=== PATIENT | male | born 1945 | race Caucasian/White ===

== ENCOUNTER 2017-01-24 06:25 | Observation (INO) | payer MEDICARE, OTHER ==
[2017-01-24 06:47] LABS: BASO % 0.3 % (0-6); EOS % 1.7 % (0-6); GRAN % 59.6 % (47-80); HEMOGLOBIN 15.1 gm/dl (14.0-18.0); LYMPH % 27.8 % (16-45); MEAN CELL VOLUME 96.7 fl (81-97); MEAN CORPUSCULAR HEMOGLOBIN 33.2 pg (27-33); MEAN CORPUSCULAR HGB CONC 34.3 g/dl (32-36); MEAN PLATELET VOLUME 10.3 fl (7.4-10.4); MONO % 10.6 % (0-9); PLATELET COUNT 182 K/uL (130-400); RED BLOOD COUNT 4.55 M/uL (4.40-5.70); RED CELL DISTRIBUTION WIDTH 13.6 % (11.5-14.5); WHITE BLOOD COUNT W/O DIFF 6.6 K/uL (4.2-12.2)
[2017-01-24 06:59] LABS: ALB/GLOB RATIO 1.8 (1.1-1.8); ALBUMIN 4.5 gm/dL (3.5-5.0); ALKALINE PHOSPHATASE 91 U/L (38-126); ALT/SGPT 44 U/L (21-72); ANION GAP 10.4 (7-16); AST/SGOT 37 U/L (17-59); BILIRUBIN,TOTAL 0.85 mg/dL (0.2-1.3); BLOOD UREA NITROGEN 21 mg/dL (9-20); CARBON DIOXIDE 28.6 mmol/L (22-30); CREATINE PHOSPHOKINASE 66 U/L (55-170); CREATININE 1.3 mg/dL (0.66-1.25); EST GLOMERULAR FILTRATION RATE 58 ml/min; GLUCOSE,RANDOM 96 mg/dL (70-110)
--- NOTE | 2017-01-24 06:59 | Emergency Department Record ---
History of Present Illness - General Chief Complaint: Shortness of breath Stated Complaint: TINGLES ALL OVER Time Seen by Provider: 01/24/17 06:57 Source: Patient, Family Mode of Arrival: Ambulatory Limitations: No limitations - History of Present Illness Initial Comments: 71 yo male presents with shortness of breath. He woke up around 2am with an uneasy feeling of shaking, tingling, and shortness of breath. He states the shortness of breath lasted most of the night. He tried different things to try to get relief but the symptoms persisted. He states he had a "very uneasy feeling" like something bad was occurring. He denies chest pain or pain with inspiration. He has had a mild cough. No fever. He states the feeling makes him have a tingling sensation all over his body. No nausea, vomiting or diarrhea. No history of CAD or DVT/PE. PCP John Rice MD Complaint: Shortness of breath Onset/Timin -: Hour(s) Severity: Mild Quality: Other Consistency: Constant Improves With: Nothing Worsens With: Nothing Associated Symptoms: Cough, Other Treatments Prior to Arrival: None - Related Data Home Medications Medication Instructions Recorded Confirmed Last Taken Calcium Carbonate/Vitamin D3 1 each PO BID 10/30/14 01/24/17 1 Day Ago [Calcium 500-Vit D3 400 Tablet] ~01/02/16 Clobetasol Propionate/Emoll 30 gm TP BID 10/30/14 01/24/17 1 Day Ago [Clobetasol Emollient 0.05% Crm] ~01/02/16 Cyclobenzaprine HCl [Flexeril] 10 mg PO BID 10/30/14 01/24/17 1 Day Ago ~01/02/16 Gabapentin 600 mg PO TID 10/30/14 01/24/17 1 Day Ago ~01/02/16 Losartan/Hydrochlorothiazide 1 each PO DAILY 10/30/14 01/24/17 1 Day Ago [Hyzaar 100-25 Tablet] ~01/02/16 Multivitamin [Multi-Vitamin Daily] 1 each PO DAILY 10/30/14 01/24/17 1 Day Ago ~01/02/16 Omeprazole 20 mg PO DAILY 10/30/14 01/24/17 1 Day Ago ~01/02/16 Potassium Chloride [Klor-Con] 10 meq PO DAILY 10/30/14 01/24/17 1 Day Ago ~01/02/16 Simvastatin [Zocor] 10 mg PO QHS 10/30/14 01/24/17 1 Day Ago ~01/02/16 Verapamil HCl [Calan Sr] 240 mg PO BID 10/30/14 01/24/17 1 Day Ago ~01/02/16 Naproxen Sodium [Aleve] 440 mg PO DAILY 01/24/17 01/24/17 Unknown Allergies Allergy/AdvReac Type Severity Reaction Status Date / Time levofloxacin [From LEVAQUIN] Allergy Unknown HIVES Verified 01/03/16 07:52 Sulfa (Sulfonamide Allergy Unknown HIVES Verified 01/03/16 07:52 Antibiotics) [SULFA (SULFONAMIDE ANTIBIOTICS)] hydrocodone bitartrate Allergy ITCHING Verified 01/03/16 07:52 [From [place]] Travel Screening - Travel/Exposure Within Last 30 Days Have you traveled within the last 30 days?: No - Travel/Exposure Within Last Year Have you traveled outside the [place] in the last year?: No - Additonal Travel Details Have you been exposed to anyone with a communicable illness?: No - Travel Symptoms Symptom Screening: None Review of Systems Constitutional: Denies: Chills, Fever, Malaise, Weakness Eyes: Denies: Eye discharge, Eye pain, Photophobia, Vision change ENT: Denies: Congestion, Throat pain Respiratory: Reports: Cough, Dyspnea. Denies: Hemoptysis, Stridor, Wheezes Cardiovascular: Reports: Dyspnea on exertion. Denies: Chest pain, Edema, Palpitations, Syncope Endocrine: Reports: Fatigue Gastrointestinal: Denies: Abdominal pain, Diarrhea, Nausea, Vomiting Genitourinary: Denies: Dysuria, Frequency, Hematuria Musculoskeletal: Denies: Arthralgia, Back pain, Joint swelling, Myalgia, Neck pain Skin: Denies: Bruising, Change in color, Rash Neurological: Reports: Tingling, Tremors. Denies: Headache, Numbness, Vertigo, Weakness Psychiatric: Denies: Anxiety Hematological/Lymphatic: Denies: Blood Clots, Easy bleeding, Easy bruising, Swollen glands Past Medical History - SOCIAL HISTORY Smoking Status: Former smoker Alcohol Use: Occassional Drug Use: None - RESPIRATORY Hx Respiratory Disorders: No Hx Bronchitis: Yes - CARDIOVASCULAR Hx Cardio Disorders: Yes Hx Hypertension: Yes - NEURO Hx Neuro Disorders: No - GI Hx GI Disorders: Yes Hx Abdominal Pain: Yes Hx Diverticulitis: Yes Hx Obstructive Bowel: Yes Comment:: Bowel resection - Hx Genitourinary Disorders: Yes Hx Prostate Problems: Yes (removed 2001) - ENDOCRINE Hx Endocrine Disorders: No Hx Diabetes: No Hx Thyroid Disease: No - MUSCULOSKELETAL Hx Musculoskeletal Disorders: Yes Hx Arthritis: Yes (bilateral hands) - PSYCH Hx Psych Problems: No - HEMATOLOGY/ONCOLOGY Hx Hematology/Oncology Disorders: Yes Hx Cancer: Yes (prostate 2001) Hx Chemotherapy: No Hx Radiation Therapy: No Comment:: prone to celluliits in the legs Family Medical History Any Significant Family History?: Yes Hx Cancer: Brother/Sister Hx HTN: Mother Hx Resp Disorders: Father Physical Exam - General General Appearance: Alert, Oriented x3, Cooperative, No acute distress Limitations: No limitations - Head Head exam: Normal inspection - Eye Eye exam: Normal appearance, PERRL. negative: Conjunctival injection, Periorbital swelling - ENT ENT exam: Normal exam, Mucous membranes moist Ear exam: Normal external inspection Nasal Exam: Normal inspection Mouth exam: Normal external inspection Teeth exam: Normal inspection - Neck Neck exam: Normal inspection, Full ROM. negative: Tenderness - Respiratory Respiratory exam: Normal lung sounds bilaterally. negative: Accessory muscle use, Respiratory distress, Rhonchi, Stridor, Wheezes - Cardiovascular Cardiovascular Exam: Regular rate, Normal rhythm, Normal heart sounds - GI/Abdominal GI/Abdominal exam: Soft. negative: Distended, Tenderness - Rectal Rectal exam: Deferred - exam: Deferred - Extremities Extremities exam: Normal inspection, Full ROM, Normal capillary refill. negative: Tenderness - Back Back exam: Reports: Normal inspection, Full ROM. Denies: CVA tenderness (R), CVA tenderness (L), Muscle spasm, Rash noted, Tenderness - Neurological Neurological exam: Alert, Normal gait, Oriented X3 - Psychiatric Psychiatric exam: Normal affect, Normal mood. negative: Agitated, Anxious - Skin Skin exam: Dry, Intact, Normal color, Warm Course Vital Signs 01/24/17 06:27 Temperature 98.1 F Pulse Rate 93 H Respiratory 20 Rate Blood Pressure 170/91 Pulse Ox 98 - Reevaluation(s) Reevaluation #1: EKG NSR rate 92, intervals normal, axis normal, ST NS inferior lateral changes. Non specific changes 01/24/17 07:00 01/24/17 08:10 Reevaluation #2: The labs were reviewed. The Troponin is negative at 0.012 BNP is 205 CR is 1.3 with GFR of 58. CXR prelim reviewed by me. No acute infiltrate or acute process. 01/24/17 07:32 Reevaluation #3: Mike Johnson V of the [facility] admission service The patient will be placed in OBV for his new dyspnea and non specific EKG changes There will be a cardiology consult and ECHO order with serial enzymes. 01/24/17 09:31 Reevaluation #4: CT negative for PE 01/24/17 09:33 Medical Decision Making - Lab Data Result diagrams: 01/24/17 06:42 01/24/17 06:42 Lab Results 01/24/17 Range/Units 06:42 WBC 6.6 (4.2-12.2) K/uL RBC 4.55 (4.40-5.70) M/uL Hgb 15.1 (14.0-18.0) gm/dl Hct 44.0 (42.0-52.0) % MCV 96.7 (81-97) fl MCH 33.2 H (27-33) pg MCHC 34.3 (32-36) g/dl RDW 13.6 (11.5-14.5) % Plt Count 182 (130-400) K/uL MPV 10.3 (7.4-10.4) fl Gran % 59.6 (47-80) % Lymphocytes % 27.8 (16-45) % Monocytes % 10.6 H (0-9) % Eosinophils % 1.7 (0-6) % Basophils % 0.3 (0-6) % Disposition Disposition: Admit Clinical Impression: Dyspnea Qualifiers: Dyspnea type: unspecified Qualified Code(s): R06.00 - Dyspnea, unspecified Disposition: Still a Patient at [facility] Decision to Admit: Admit from ER Decision to Admit Date: 01/24/17 Decision to Admit Time: : Condition: (2) Stable Forms: Patient Portal Access Time of Disposition:
[2017-01-24 07:11] LABS: CKMB 2.2 ug/L (0-6); TROPONIN I < 0.012 ng/mL (0.00-0.034)
[2017-01-24] MEDS ORDERED: ACETAMINOPHEN 500 MG TABLET PO PRN (09:33)
[2017-01-24] MEDS ORDERED: CYCLOBENZAPRINE 10MG TABLET PO SCH (10:00)
[2017-01-24] MEDS ORDERED: CLOBETASOL PROPIONATE TP SCH (10:00)
[2017-01-24] MEDS ORDERED: EMOLL TP SCH (10:00)
[2017-01-24] MEDS ORDERED: PANTOPRAZOLE SODIUM 40 MG TABLET PO PRN (10:42)
[2017-01-24] MEDS: VERAPAMIL HCL 240 MG TAB ER PO SCH ×2 (10:51→21:22)
[2017-01-24] MEDS: ENOXAPARIN 40 MG/0.4 ML SYR SQ SCH (10:51)
[2017-01-24] MEDS: GABAPENTIN 300 MG CAPSULE PO SCH ×3 (10:51→21:21)
[2017-01-24] MEDS: POTASSIUM CHLORIDE 10 MEQ TAB PO SCH (10:51)
[2017-01-24] MEDS: LOSARTAN POTASSIUM 100 MG TABLET PO SCH (11:46)
[2017-01-24] MEDS: HYDROCHLOROTHIAZIDE 25 MG TABLET PO SCH (11:46)
--- NOTE | 2017-01-24 15:40 | History & Physical ---
History of Present Illness - Date of Service Date of Service for History & Physical: 01/24/17 - History of Present Illness Admitting Diagnosis: New Onset Dyspnea, History of Present Illness: 71 y/o male with sudden onset shortness of breath at 2am this morning accompanied by an uneasy feeling of shaking, and tingling admitted for acute onset dyspnea and new ST non-specific inferior lateral changes on EKG. Past medical history includes bronchitis, HTN, diverticulitis, bowel obstruction, prostate cancer, cellulitis Past Surgical History back surgery x 3 prostate surgery r/t ca 2002 bowel resection (1/4 removed) r/t diverticulitis right shoulder rotator cuff repair Hernia repair hernia repair Prior to arrival woke at 2am with sudden onset shortness of breath and a feeling of impending doom. Denied chest pain, fever, nausea, vomiting, diarrhea. No previous hx CAD, DVT/PE. Reports he felt tingly around his mouth and felt like his whole body was "humming". Is a previous smoker, quit 50 years ago. 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 Otherwise has not been exposed to any other airborne chemicals. Does report history of scar tissue in his left lung from a history of pneumonia. Does know he has COPD findings as per his CXR in ED. Denies cough , REBECCA, mucus production, wheezing. Denies anxiety or panic disorder. Does report has similar symptoms about 10 years ago after doing a nora job in the hot weather, was found to be dehydrated with electrolyte imbalance. While in the ED, labs grossly negative for acute infectious process, first set of cardiac enzymes normal, slight elevation BUN/Cr. EKG NSR with non-specific ST segment changes as compared to previous. D-Dimer 0.53. CTA chest negative for PE, + mediastinal lymphadenopathy, questionable pulmonary fibrosis. CXR shows negative for acute process, + COPD changes. Last stress test 3 years ago and was reported as normal per patient Laboratory Results WBC 6.6 K/uL (4.2-12.2) 01/24/17 06:42 RBC 4.55 M/uL (4.40-5.70) 01/24/17 06:42 Hgb 15.1 gm/dl (14.0-18.0) 01/24/17 06:42 Hct 44.0 % (42.0-52.0) 01/24/17 06:42 MCV 96.7 fl (81-97) 01/24/17 06:42 MCH 33.2 pg (27-33) H 01/24/17 06:42 MCHC 34.3 g/dl (32-36) 01/24/17 06:42 RDW 13.6 % (11.5-14.5) 01/24/17 06:42 Plt Count 182 K/uL (130-400) 01/24/17 06:42 MPV 10.3 fl (7.4-10.4) 01/24/17 06:42 Gran % 59.6 % (47-80) 01/24/17 06:42 Lymphocytes % 27.8 % (16-45) 01/24/17 06:42 Monocytes % 10.6 % (0-9) H 01/24/17 06:42 Eosinophils % 1.7 % (0-6) 01/24/17 06:42 Basophils % 0.3 % (0-6) 01/24/17 06:42 D-Dimer 0.53 mg/L FEU (0-0.59) 01/24/17 06:40 Sodium 142 mmol/L (136-145) 01/24/17 06:42 Potassium 3.8 mmol/L (3.5-5.1) 01/24/17 06:42 Chloride 103 mmol/L (98-107) 01/24/17 06:42 Carbon Dioxide 28.6 mmol/L (22-30) 01/24/17 06:42 Anion Gap 10.4 (7-16) 01/24/17 06:42 BUN 21 mg/dL (9-20) H 01/24/17 06:42 Creatinine 1.3 mg/dL (0.66-1.25) H 01/24/17 06:42 Estimated GFR 58 ml/min 01/24/17 06:42 Random Glucose 96 mg/dL (70-110) 01/24/17 06:42 Calcium 8.6 mg/dL (8.5-10.1) 01/24/17 06:42 Total Bilirubin 0.85 mg/dL (0.2-1.3) 01/24/17 06:42 AST 37 U/L (17-59) 01/24/17 06:42 ALT 44 U/L (21-72) 01/24/17 06:42 Alkaline Phosphatase 91 U/L (38-126) 01/24/17 06:42 Creatine Kinase 66 U/L (55-170) 01/24/17 06:42 CK-MB (CK-2) 2.2 ug/L (0-6) 01/24/17 06:42 Troponin I < 0.012 ng/mL (0.00-0.034) 01/24/17 06:42 NT-Pro-B Natriuret Pep 205.00 pg/mL (<125) H 01/24/17 06:40 Total Protein 7.0 gm/dL (6.3-8.2) 01/24/17 06:42 Albumin 4.5 gm/dL (3.5-5.0) 01/24/17 06:42 Globulin 2.5 gm/dL (1.4-4.8) 01/24/17 06:42 Albumin/Globulin Ratio 1.8 (1.1-1.8) 01/24/17 06:42 Vital Signs - Last 24 Hrs Temp Pulse Pulse Pulse Resp BP BP 01/24/17 12:37 89 16 01/24/17 11:33 99.0 F 86 16 150/78 01/24/17 10:26 20 01/24/17 10:09 98.3 F 88 14 138/84 01/24/17 09:30 98.7 F 93 H 18 152/86 01/24/17 07:37 92 H 18 131/78 01/24/17 06:27 98.1 F 93 H 20 170/91 Pulse Ox 01/24/17 12:37 98 01/24/17 11:33 100 01/24/17 10:26 01/24/17 10:09 100 01/24/17 09:30 96 01/24/17 07:37 98 01/24/17 06:27 98 01/24/17- resting in bed comfortably, reports symptoms improved while he was in the ED. Has had no further shortness of breath or tingling sensation. Denies any further complaints. PCP: Dr John Royal Travel Screening - Travel/Exposure Within Last 30 Days Have you traveled within the last 30 days?: No - Travel/Exposure Within Last Year Have you traveled outside the [place] in the last year?: No - Additonal Travel Details Have you been exposed to anyone with a communicable illness?: No - Travel Symptoms Symptom Screening: None Review of Systems Constitutional: Denies: Chills, Fever, Malaise, Weakness Eyes: Denies: Eye discharge, Eye pain, Photophobia, Vision change ENT: Denies: Congestion, Throat pain Respiratory: Reports: Cough, Dyspnea. Denies: Hemoptysis, Stridor, Wheezes Cardiovascular: Reports: Dyspnea on exertion. Denies: Chest pain, Edema, Palpitations, Syncope Endocrine: Reports: Fatigue Gastrointestinal: Denies: Abdominal pain, Diarrhea, Nausea, Vomiting Genitourinary: Denies: Dysuria, Frequency, Hematuria Musculoskeletal: Denies: Arthralgia, Back pain, Joint swelling, Myalgia, Neck pain Skin: Denies: Bruising, Change in color, Rash Neurological: Reports: Tingling, Tremors. Denies: Headache, Numbness, Vertigo, Weakness Psychiatric: Denies: Anxiety Hematological/Lymphatic: Denies: Blood Clots, Easy bleeding, Easy bruising, Swollen glands Past Medical History - SOCIAL HISTORY Smoking Status: Former smoker Alcohol Use: Occassional Drug Use: None - RESPIRATORY Hx Respiratory Disorders: No Hx Bronchitis: Yes - CARDIOVASCULAR Hx Cardio Disorders: Yes Hx Hypertension: Yes - NEURO Hx Neuro Disorders: No - GI Hx GI Disorders: Yes Hx Abdominal Pain: Yes Hx Diverticulitis: Yes Hx Obstructive Bowel: Yes Comment:: Bowel resection - Hx Genitourinary Disorders: Yes Hx Prostate Problems: Yes (removed 2001) - ENDOCRINE Hx Endocrine Disorders: No Hx Diabetes: No Hx Thyroid Disease: No - MUSCULOSKELETAL Hx Musculoskeletal Disorders: Yes Hx Arthritis: Yes (bilateral hands) - PSYCH Hx Psych Problems: No - HEMATOLOGY/ONCOLOGY Hx Hematology/Oncology Disorders: Yes Hx Cancer: Yes (prostate 2001) Hx Chemotherapy: No Hx Radiation Therapy: No Comment:: prone to celluliits in the legs Family Medical History Any Significant Family History?: Yes Hx Cancer: Brother/Sister Hx HTN: Mother Hx Resp Disorders: Father H&P Meds/Allergies - Allergies Allergies: Allergies Allergy/AdvReac Type Severity Reaction Status Date / Time levofloxacin [From LEVAQUIN] Allergy Unknown HIVES Verified 01/03/16 07:52 Sulfa (Sulfonamide Allergy Unknown HIVES Verified 01/03/16 07:52 Antibiotics) [SULFA (SULFONAMIDE ANTIBIOTICS)] hydrocodone bitartrate Allergy ITCHING Verified 01/03/16 07:52 [From [place]] - Home Medications Home Medications Medication Instructions Recorded Confirmed Last Taken Calcium Carbonate/Vitamin D3 1 each PO BID 10/30/14 01/24/17 1 Day Ago [Calcium 500-Vit D3 400 Tablet] ~01/02/16 Gabapentin 600 mg PO TID 10/30/14 01/24/17 1 Day Ago ~01/02/16 Losartan/Hydrochlorothiazide 1 each PO DAILY 10/30/14 01/24/17 1 Day Ago [Hyzaar 100-25 Tablet] ~01/02/16 Multivitamin [Multi-Vitamin Daily] 1 each PO DAILY 10/30/14 01/24/17 1 Day Ago ~01/02/16 Omeprazole 20 mg PO DAILY PRN 10/30/14 01/24/17 1 Day Ago ~01/02/16 Potassium Chloride [Klor-Con] 10 meq PO DAILY 10/30/14 01/24/17 1 Day Ago ~01/02/16 Verapamil HCl [Calan Sr] 240 mg PO BID 10/30/14 01/24/17 1 Day Ago ~01/02/16 Naproxen Sodium [Aleve] 440 mg PO DAILY 01/24/17 01/24/17 Unknown Simvastatin [Zocor] 10 mg PO QHS 01/24/17 01/24/17 Unknown - Active Medications Active Medications: Current Medications Acetaminophen (Tylenol 500mg Tab) 1,000 mg PO Q6H PRN PRN Reason: PAIN/TEMP Enoxaparin Sodium (Lovenox) 40 mg SQ DAILY [facility] Last Admin: 01/24/17 10:51 Dose: 40 mg Gabapentin (Neurontin) 600 mg PO TID [facility] Last Admin: 01/24/17 10:51 Dose: 600 mg Hydrochlorothiazide (Hctz 25mg) 25 mg PO DAILY [facility] Last Admin: 01/24/17 11:46 Dose: 25 mg Losartan Potassium (Losartan Potassium) 100 mg PO DAILY [facility] Last Admin: 01/24/17 11:46 Dose: 100 mg Pantoprazole Sodium (Protonix) 40 mg PO DAILYAC PRN PRN Reason: HEARTBURN Potassium Chloride (Klor-Con) 10 meq PO DAILY [facility] Last Admin: 01/24/17 10:51 Dose: 10 meq Simvastatin (Zocor) 10 mg PO QHS [facility] Verapamil HCl (Calan Sr) 240 mg PO BID [facility] Last Admin: 01/24/17 10:51 Dose: 240 mg Physical Exam - Vital Signs Vital Signs: Vital Signs - Last 24 Hrs Temp Pulse Pulse Resp BP BP Pulse Ox 01/24/17 12:37 89 16 98 01/24/17 11:33 99.0 F 86 16 150/78 100 01/24/17 10:26 20 01/24/17 10:09 98.3 F 88 14 138/84 100 - General General Appearance: Alert, Oriented x3, Cooperative, No acute distress Limitations: No limitations - Head Head exam: Normal inspection - Eye Eye exam: Normal appearance, PERRL. negative: Conjunctival injection, Periorbital swelling - ENT ENT exam: Normal exam, Mucous membranes moist Ear exam: Normal external inspection Nasal Exam: Normal inspection Mouth exam: Normal external inspection Teeth exam: Normal inspection - Neck Neck exam: Normal inspection, Full ROM. negative: Tenderness - Respiratory Respiratory exam: Normal lung sounds bilaterally. negative: Accessory muscle use, Respiratory distress, Rhonchi, Stridor, Wheezes - Cardiovascular Cardiovascular Exam: Regular rate, Normal rhythm, Normal heart sounds Peripheral Pulses: 2+: Dorsalis Pedis (R), Dorsalis Pedis (L) - GI/Abdominal GI/Abdominal exam: Soft, Normal bowel sounds. negative: Distended, Tenderness - Rectal Rectal exam: Deferred - exam: Deferred - Extremities Extremities exam: Normal inspection, Full ROM, Normal capillary refill. negative: Calf tenderness, Pedal edema, Tenderness - Back Back exam: Reports: Normal inspection, Full ROM. Denies: CVA tenderness (R), CVA tenderness (L), Muscle spasm, Rash noted, Tenderness - Neurological Neurological exam: Alert, Normal gait, Oriented X3 - Psychiatric Psychiatric exam: Normal affect, Normal mood. negative: Agitated, Anxious - Skin Skin exam: Dry, Intact, Normal color, Warm Results - Labs Result Diagrams: 01/24/17 06:42 01/24/17 06:42 - Imaging and Cardiology CT scan - chest Status: Report reviewed (CTA chest: 1- no PE, 2- mediasteinal lymphadenopathy, 3 - questionable pulmonary fibrosis) Chest x-ray Status: Report reviewed (1- no acute process, 2- COPD) VTE H&P Assessment - Risk for VTE Risk for VTE: Yes Risk Level: Low Risk Assessment Date: 01/24/17 Risk Assessment Time: 16:49 VTE Orders Placed or Will Be Placed: Yes Plan - Detailed Diagnosis and Plan (1) Dyspnea Current Visit: Yes Status: Acute Qualifiers: Dyspnea type: unspecified Qualified Code(s): R06.00 - Dyspnea, unspecified Base Code: R06.00 - DYSPNEA, UNSPECIFIED Comment: 01/24/17- 71 y/o with no known hx CAD admitted for sudden onset shortness of breath. CTA chest negative for PE, + questionable pulmonary fibrosis. CXR negative for acute process, + COPD changes- is asymptomatic. EKG in ED with non-specific ST segment changes, new from last. Admitted for echo and cardiology consult, serial enzymes - first set cardiac enzymes negative - cardiology consult - echo - will get alpha 1 antitrypsin (2) DVT prophylaxis Current Visit: Yes Status: Acute Base Code: [id number] - Comment: 01/24/17- nursing to encourage frequent ambulation (3) Full code status Current Visit: Yes Status: Acute Base Code: Z78.9 - OTHER SPECIFIED HEALTH STATUS Comment: 01/24/17- will remain full code during this hospitalization
--- NOTE | 2017-01-24 15:52 | RADIOLOGY REPORT ---
EXAM: CHEST 2 VIEWS HISTORY: SHORTNESS OF BREATH. TECHNIQUE: Two views of the chest are provided along with comparison study dated 04/12/2014. FINDINGS: Cardiac silhouette is within normal limits for size and contour. Tortuosity of the thoracic aorta is noted. Yue appear unremarkable. COPD changes are identified. There is no radiographic evidence of a focal infiltrate or pleural effusion. IMPRESSION: NO RADIOGRAPHIC EVIDENCE OF ACUTE INTRATHORACIC PROCESS. JOB NUMBER: [id number] MTDD
--- NOTE | 2017-01-24 16:04 | CT ANGIOGRAM REPORT ---
EXAM: CT ANGIOGRAM CHEST CTA w contrast HISTORY: PATIENT HAS SHORTNESS OF BREATH. CONGESTION. TECHNIQUE: Serial axial CT scan of the chest was performed at 2.5 mm intervals from the thoracic inlet to the dome of the diaphragm following the intravenous administration of 100 mL of Omnipaque-300. COMPARISON: Comparison CT scan of the abdomen and pelvis dated 03/08/2015 is provided. FINDINGS: Thoracic inlet demonstrates heterogeneous nodule within the left thyroid lobe. If there is further clinical concern then an ultrasound examination of the thyroid gland can be obtained for further evaluation. Lung windows demonstrate no CT evidence of a focal consolidation or pleural effusion. Linear subsegmental atelectasis of the bilateral costophrenic angles are identified. There are questionable interlobular and intralobular pleural- based septal thickening at the lung bases, which may represent honeycombing from pulmonary fibrosis. Clinical correlation is recommended. There is no CT evidence of a filling defect within the primary and secondary pulmonary vascular tree to suggest a pulmonary embolus. Multiple enlarged lymph nodes are identified within the mediastinum and bilateral sedrick. The largest of these lymph nodes is located within the right subcarinal space and measures approximately 1.5 cm in short axis diameter. Given their size, neoplastic etiology cannot be excluded. PET scan can be obtained for further evaluation. Cardiomegaly is noted. The contour, caliber, and flow within the thoracic aorta is unremarkable. Axial images through the upper abdomen demonstrate diffuse fatty infiltration throughout the liver. Within the caudate lobe and the left hepatic lobe, there are well-circumscribed hypodensities, which are unchanged with respect to the prior CT scan. These likely represents cysts and appear unchanged with respect to the prior CT scan. The visualized spleen, bilateral adrenal glands are unchanged. Bone windows demonstrate no CT evidence of a fracture or dislocation of the visualized osseous structures of the chest. There are findings suggestive of diffuse idiopathic skeletal hyperostosis. IMPRESSION: 1. NO CT EVIDENCE OF A PULMONARY EMBOLUS. 2. POSSIBLE PULMONARY FIBROSIS. CLINICAL CORRELATION IS RECOMMENDED. 3. MEDIASTINAL LYMPHADENOPATHY. PET SCAN CAN BE OBTAINED FOR FURTHER EVALUATION. 4. DIFFUSE IDIOPATHIC STEATOSIS. STABLE CT APPEARANCE OF THE HEPATIC CYSTS WITH RESPECT TO THE PRIOR CT SCAN. JOB NUMBER: [id number] MTDD
[2017-01-24] MEDS ORDERED: SIMVASTATIN 10MG TABLET PO SCH (22:00)
[2017-01-25 08:19] LABS: HEMATOCRIT 44.7 % (42.0-52.0); HEMOGLOBIN 15.1 gm/dl (14.0-18.0); MEAN CELL VOLUME 98.2 fl (81-97); MEAN CORPUSCULAR HEMOGLOBIN 33.2 pg (27-33); MEAN CORPUSCULAR HGB CONC 33.8 g/dl (32-36); MEAN PLATELET VOLUME 9.9 fl (7.4-10.4); PLATELET COUNT 173 K/uL (130-400); RED BLOOD COUNT 4.55 M/uL (4.40-5.70); RED CELL DISTRIBUTION WIDTH 13.8 % (11.5-14.5); WHITE BLOOD COUNT W/O DIFF 5.7 K/uL (4.2-12.2)
[2017-01-25 08:31] LABS: PLATELET ESTIMATE NORMAL (NORMAL)
[2017-01-25 08:32] LABS: BLOOD UREA NITROGEN 22 mg/dL (9-20); CREATININE 1.1 mg/dL (0.66-1.25); EST GLOMERULAR FILTRATION RATE > 60 ml/min; GLUCOSE,RANDOM 116 mg/dL (70-110)
[2017-01-25] MEDS: POTASSIUM CHLORIDE 10 MEQ TAB PO SCH (10:02)
[2017-01-25] MEDS: LOSARTAN POTASSIUM 100 MG TABLET PO SCH (10:02)
[2017-01-25] MEDS: VERAPAMIL HCL 240 MG TAB ER PO SCH (10:02)
[2017-01-25] MEDS: HYDROCHLOROTHIAZIDE 25 MG TABLET PO SCH (10:02)
[2017-01-25] MEDS: GABAPENTIN 300 MG CAPSULE PO SCH ×2 (10:03→17:27)
[2017-01-25] MEDS: ENOXAPARIN 40 MG/0.4 ML SYR SQ SCH (10:03)
--- NOTE | 2017-01-25 10:05 | Discharge Summary ---
Providers Discharge Summary Date: 01/25/17 Date of admission: 01/24/17 10:01 Expected Date of Discharge: 01/25/17 Attending physician: DENNISE AGUIAR Primary care physician: JR ROYAL M.D. Physical Exam - Vital Signs Vital Signs: Vital Signs - Last 24 Hrs Temp Pulse Pulse Resp BP BP Pulse Ox 01/25/17 06:05 96 01/25/17 06:00 98.1 F 78 16 128/74 96 01/25/17 02:10 98.3 F 75 18 122/73 94 L 01/24/17 21:25 98.2 F 80 18 146/76 98 01/24/17 21:00 79 16 98 01/24/17 15:33 98.5 F 77 16 130/72 98 01/24/17 12:37 89 16 98 01/24/17 11:33 99.0 F 86 16 150/78 100 01/24/17 10:26 20 01/24/17 10:09 98.3 F 88 14 138/84 100 - General General Appearance: Alert, Oriented x3, Cooperative, No acute distress Limitations: No limitations - Head Head exam: Normal inspection - Eye Eye exam: Normal appearance, PERRL. negative: Conjunctival injection, Periorbital swelling - ENT ENT exam: Normal exam, Mucous membranes moist Ear exam: Normal external inspection Nasal Exam: Normal inspection Mouth exam: Normal external inspection Teeth exam: Normal inspection - Neck Neck exam: Normal inspection, Full ROM. negative: Tenderness - Respiratory Respiratory exam: Normal lung sounds bilaterally. negative: Accessory muscle use, Respiratory distress, Rhonchi, Stridor, Wheezes - Cardiovascular Cardiovascular Exam: Regular rate, Normal rhythm, Normal heart sounds Peripheral Pulses: 2+: Dorsalis Pedis (R), Dorsalis Pedis (L) - GI/Abdominal GI/Abdominal exam: Soft, Normal bowel sounds. negative: Distended, Tenderness - Rectal Rectal exam: Deferred - exam: Deferred - Extremities Extremities exam: Normal inspection, Full ROM, Normal capillary refill. negative: Calf tenderness, Pedal edema, Tenderness - Back Back exam: Reports: Normal inspection, Full ROM. Denies: CVA tenderness (R), CVA tenderness (L), Muscle spasm, Rash noted, Tenderness - Neurological Neurological exam: Alert, Normal gait, Oriented X3 - Psychiatric Psychiatric exam: Normal affect, Normal mood. negative: Agitated, Anxious - Skin Skin exam: Dry, Intact, Normal color, Warm Hospitalization - Hospitalization Admission Diagnosis: New Onset Dyspnea, - Problem List/Discharge Diagnosis (1) Dyspnea Status: Acute Discharge Diagnosis: Dyspnea type: unspecified Qualified Code(s): R06.00 - Dyspnea, unspecified Base Code: R06.00 - DYSPNEA, UNSPECIFIED Comment: 01/25/17- Resolved. Patient states he feels so much better today compared to when he came in. He denies any cough, chest congestion, shortness of breath or chest pain. CTA negative for PE , + questionable pulmonary fibrosis, which patient was previously aware. CXR negative for acute process, + COPD changes- is asymptomatic. EKG in ED with slight ST depression in lateral leads, new from last. Serial enzymes negative. Echo completed and Dr. Gonzalez evaluated patient. -Plan to discharge home today with outpatient chemical stress test set up with Dr. Gonzalez to further eval EKG changes -Dr. Gonzalez recommends decreasing patient's verapamil dose to 240mg po once daily down from BID as he is experiencing some pedal edema with the higher dose. Dr. Gonzalez will follow up with patient regarding his HTN if not at goal once decreasing his verapamil. -patient has follow up with pcp, Dr. Royal scheduled by his already. (2) DVT prophylaxis Status: Acute Base Code: [id number] - Comment: 01/25/17- nursing to encourage frequent ambulation -lovenox 40mg sq daily was also given for prophylaxis (3) Full code status Status: Acute Base Code: Z78.9 - OTHER SPECIFIED HEALTH STATUS Comment: 01/25- full code during this hospitalization - Hospitalization Course Disposition: Home, Self-Care Abnormal Labs: Abnormal Lab Results 01/25/17 01/25/17 Range/Units 08:20 08:20 MCV 98.2 H (81-97) fl MCH 33.2 H (27-33) pg Carbon Dioxide 31.0 H (22-30) mmol/L Anion Gap 5.0 L (7-16) BUN 22 H (9-20) mg/dL Random Glucose 116 H (70-110) mg/dL Calcium 8.2 L (8.5-10.1) mg/dL Condition at Discharge: (2) Stable Discharge Medications - Discharge Medications Home Medications: Ambulatory Orders Calcium Carbonate/Vitamin D3 [Calcium 500-Vit D3 400 Tablet] 1 each PO BID 10/30 [Last Taken 1 Day Ago ~01/02/16] Gabapentin 600 mg PO TID 10/30/14 [Last Taken 1 Day Ago ~01/02/16] Losartan/Hydrochlorothiazide [Hyzaar 100-25 Tablet] 1 each PO DAILY 10/30/14 [ Last Taken 1 Day Ago ~01/02/16] Multivitamin [Multi-Vitamin Daily] 1 each PO DAILY 10/30/14 [Last Taken 1 Day Ago ~01/02/16] Omeprazole 20 mg PO DAILY PRN 10/30/14 [Last Taken 1 Day Ago ~01/02/16] Potassium Chloride [Klor-Con] 10 meq PO DAILY 10/30/14 [Last Taken 1 Day Ago ~] Naproxen Sodium [Aleve] 440 mg PO DAILY 01/24/17 [Last Taken Unknown] Simvastatin [Zocor] 10 mg PO QHS 01/24/17 [Last Taken Unknown] Verapamil HCl [Calan Sr] 240 mg PO DAILY #0 01/25/17 [Last Taken 1 Day Ago ~10/14] Discharge Plan - Discharge Instructions Activity at Discharge: Resume Usual Activities As Tolerated Diet at Discharge: Low Fat, Low Cholesterol, Low Salt Diet Additional Instructions: Follow up with Dr. Gonzalez, Cardiology for an outpatient stress test. [facility] specialty clinic should be contacting you to schedule Follow up with your PCP in the next 7-10 days Decrease Verapamil 240mg to once daily down from twice daily Please call with any questions Return to ED for any new or worsening symptoms
--- NOTE | 2017-02-02 13:58 | Medical Records Consult ---
DATE OF CONSULTATION: 01/25/17 REASON FOR CONSULTATION: Dyspnea and abnormal EKG. Mr. Ramires is a 71-year-old gentleman with a long standing history of hypertension. He has been on Hyzaar 100/25 mg as well as Verapamil 240 mg b.i.d. for his blood pressure, however, he has been having troubles with pedal edema and when he saw that he had more than usual pedal edema he took an additional half dose of his Hyzaar. The patient says that after taking that extra dose he needed to urinate quite frequently and he could not sleep all night long and then in the morning he was very jittery and anxious and became short of breath as well and since he was not feeling right he presented to the Emergency Department. In the Emergency Department his initial blood pressure was 170/91 mmHg. The patient, however, denies any chest pain. The patient does not have any history of coronary artery disease either. He denies any fevers or chills. Since he has been in the hospital he has not had any recurrence of symptoms and he is feeling back to his baseline. PAST SURGICAL HISTORY: Significant for back surgery times three, prostate surgery because of prostate cancer in 2001, he also had bowel resection because of diverticulitis, right shoulder surgery rotator cuff repair, and two herniorrhaphies. ALLERGIES: LEVOFLOXACIN CAUSES HIVES, SULFA CAUSES HIVES, AND HYDROCODONE CAUSES ITCHING. HOME MEDICATIONS: Verapamil SR 240 mg b.i.d., potassium chloride 10 mEq daily, Omeprazole 20 mg daily, Hyzaar 100/25 mg daily, Neurontin 600 mg t.i.d., calcium carbonate one p.o. b.i.d., and Simvastatin 10 mg p.o. q.h.s. REVIEW OF SYSTEMS: The patient denies any fevers or chills. He denies any sleep or appetite changes except for the day of presentation when he could not sleep because of the frequency of urination. He denies any history of anxiety or depression. He doesn't have any history of thyroid issues and he is not diabetic. PHYSICAL EXAMINATION: His vital signs show a blood pressure of 126/78 mmHg and a heart rate of 74 b.p.m. His EKG shows a sinus rhythm at [address] depression involving the inferior leads as well as the precordial leads V3 through V6. Lead [address] depression as well. The patient's laboratory data shows a white count of 6.6, hemoglobin of 15.1, hematocrit of 44.0, platelet count of 182, sodium of 142, potassium of 3.8, chloride of 103, CO2 of 28.6, BUN of 21, creatinine of 1.3, blood glucose of 96. His CTA of the chest was negative for pulmonary embolism. ASSESSMENT/PLAN: ABNORMAL EKG. THE PATIENT HAS AN ABNORMAL EKG WITH DIFFUSE ST DEPRESSION, HOWEVER, HE DID NOT HAVE ANY CHEST PAINS AND HIS CARDIAC BIOMARKERS ARE WITHIN NORMAL LIMITS. THE PATIENT'S SYMPTOMS OF JITTERINESS AND THE SHORTNESS OF BREATH MOST LIKELY WAS RELATED TO ANXIETY FROM NOT BEING ABLE TO SLEEP ALL NIGHT LONG. THE PATIENT WAS VERY CONCERNED ABOUT HIS PEDAL EDEMA WELL. HE UNDERWENT AN ECHOCARDIOGRAM IN WHICH HIS LV FUNCTION IS NORMAL WITH AN ESTIMATED EJECTION FRACTION OF 55% WITH NO SEGMENTAL WALL MOTION ABNORMALITIES. HE DOES HAVE MILD TO MODERATE AORTIC VALVE INSUFFICIENCY. HE ALSO HAS GRADE 1 LEFT VENTRICULAR DIASTOLIC DYSFUNCTION WITH NORMAL PULMONARY ARTERY PRESSURES. I WOULD RECOMMEND DECREASING THE VERAPAMIL TO 240 MG ONCE A DAY RATHER THAN B.I.D. THE VERAPAMIL IS CAUSING THE PEDAL EDEMA EVIDENCED BY NORMAL LV SYSTOLIC FUNCTION AND A PRO-BNP OF ONLY 205. CONTINUE THE HYZAAR FOR NOW. I WOULD ALSO RECOMMEND DOING A MYOCARDIAL PERFUSION IMAGING STRESS TEST FOR EVALUATION OF ISCHEMIA GIVEN THE ABNORMAL EKG. SINCE THE PATIENT IS NOT HAVING ANY CHEST PAINS AT THIS POINT IN TIME AND THE CARDIAC BIOMARKERS ARE WITHIN NORMAL LIMITS, I DO NOT FEEL THE NEED FOR HIM TO STAY IN THE HOSPITAL TO GET HIS STRESS TEST DONE. WE WILL SCHEDULE HIM FOR A STRESS TEST AN OUTPATIENT AND THEN HE CAN FOLLOW-UP WITH ME AN OUTPATIENT. THE PATIENT'S AORTIC VALVE INSUFFICIENCY IS ONLY MILD TO MODERATE IN DEGREE AND WILL NEED A SURVEILLANCE ECHOCARDIOGRAM IN EIGHTEEN TO TWENTY-FOUR MONTHS. I PROVIDED REASSURANCE TO HIM THAT THE AORTIC VALVE INSUFFICIENCY SHOULD NOT BE CAUSING HIM ANY OF HIS SYMPTOMS AT THIS STAGE. THE PATIENT'S BLOOD PRESSURE IS ADEQUATELY CONTROLLED WITH HYZAAR AND REDUCING THE DOSE OF VERAPAMIL SHOULD NOT EFFECT THE BLOOD PRESSURE THAT MUCH, HOWEVER, IF HIS BLOOD PRESSURE DOES GO UP WE WILL CONSIDER ADDING EITHER HYDRALAZINE, MINOXIDIL, OR A CENTRALLY ACTING AGENT OR EVEN A BETA LEILA. Thank you very much for involving me in the management of your patient. If you have any questions please do not hesitate to call me. JOB NUMBER: [id number] MTDD
== END 2017-01-25 19:36 | disposition home or self-care (01) ==
LOC: ER 06:25 → MEDSURG 10:01
PROVIDERS: ADMIT Family Medicine; ATTEND Family Medicine
DX: R06.00 Dyspnea, unspecified (principal); R94.31 Abnormal electrocardiogram [ECG] [EKG]; R60.0 Localized edema; T46.1X5A Adverse effect of calcium-channel blockers, initial encounter; I10 Essential (primary) hypertension
CPT/HCPCS: 71020; 71275; 80048; 80053; 82550; 82553; 83880; 84484; 85025; 85027; 85379; 93005; 93010; 93041; 94760; 94761; 99217; 99220; 99285; J1650

== ENCOUNTER 2017-07-02 09:15 | Emergency (ER) | payer MEDICARE, OTHER ==
[2017-07-02] MEDS ORDERED: 0.9 % SODIUM CHLORIDE 1,000 ML BAG IV ONE (09:42)
[2017-07-02] MEDS ORDERED: ONDANSETRON HCL IV 4 MG/2 ML VIAL IV ONE (09:42)
--- NOTE | 2017-07-02 09:46 | Emergency Department Record ---
History of Present Illness - General Chief complaint: Weakness Stated complaint: WEAKNESS Time Seen by Provider: 07/02/17 09:28 Source: Patient Mode of Arrival: Wheelchair Limitations: No limitations - History of Present Illness Initial comments: The patient is here due to not feeling well for almost a week. He had a R knee replacement performed 17 days ago at [facility] and was discharged on Percocet. Since he has been home he has had intermittent nausea and vomiting. The patient states he has thrown up about every other day since being home. There has been no diarrhea but some hard stools. The patient does have mild abdominal bloating but denies any AP, back pain, CP, SOB, REBECCA, or sweating. He has had a SBO in the past and he also denies any new R leg pain or any swelling. MD Complaint: Generalized weakness Onset/Timin -: Days(s) Consistency: Constant Improves with: None Worsens with: None Associated Symptoms: Denies other symptoms - Related Data Home Medications Medication Instructions Recorded Confirmed Last Taken Oxycodone HCl/Acetaminophen 7.5 mg PO Q6H PRN 07/02/17 07/02/17 Unknown [Percocet 7.5mg/325mg] Previous Rx's Medication Instructions Recorded Verapamil HCl [Calan Sr] 240 mg PO DAILY #0 01/25/17 Allergies Allergy/AdvReac Type Severity Reaction Status Date / Time levofloxacin [From LEVAQUIN] Allergy Unknown HIVES Verified 01/03/16 07:52 Sulfa (Sulfonamide Allergy Unknown HIVES Verified 01/03/16 07:52 Antibiotics) [SULFA (SULFONAMIDE ANTIBIOTICS)] hydrocodone bitartrate Allergy ITCHING Verified 01/03/16 07:52 [From [place]] Travel Screening - Travel/Exposure Within Last 30 Days Have you traveled within the last 30 days?: No Review of Systems Constitutional: Denies: Chills, Fever Eyes: Denies: Eye discharge ENT: Denies: Congestion Respiratory: Denies: Cough, Dyspnea, Hemoptysis Past Medical History - SOCIAL HISTORY Smoking Status: Former smoker Alcohol Use: None Drug Use: None - RESPIRATORY Hx Respiratory Disorders: Yes Hx Bronchitis: Yes - CARDIOVASCULAR Hx Cardio Disorders: Yes Hx Hypertension: Yes - NEURO Hx Neuro Disorders: No - GI Hx GI Disorders: Yes Hx Abdominal Pain: Yes Hx Diverticulitis: Yes Hx Obstructive Bowel: Yes Comment:: Bowel resection - Hx Genitourinary Disorders: Yes Hx Prostate Problems: Yes (removed 2001) - ENDOCRINE Hx Endocrine Disorders: No Hx Diabetes: No Hx Thyroid Disease: No - MUSCULOSKELETAL Hx Musculoskeletal Disorders: Yes Hx Arthritis: Yes (bilateral hands) - PSYCH Hx Psych Problems: No - HEMATOLOGY/ONCOLOGY Hx Hematology/Oncology Disorders: Yes Hx Cancer: Yes (prostate 2001) Hx Chemotherapy: No Hx Radiation Therapy: No Comment:: prone to celluliits in the legs Family Medical History Any Significant Family History?: Yes Hx Cancer: Brother/Sister Hx HTN: Mother Hx Resp Disorders: Father Physical Exam - General General Appearance: Alert, Oriented x3, Cooperative, No acute distress - Head Head exam: Atraumatic, Normocephalic, Normal inspection - Eye Eye exam: Normal appearance, PERRL - ENT Throat exam: Normal inspection. negative: Tonsillar erythema, Tonsillar exudate - Neck Neck exam: Normal inspection, Full ROM. negative: Tenderness - Respiratory Respiratory exam: Normal lung sounds bilaterally. negative: Respiratory distress - Cardiovascular Cardiovascular Exam: Regular rate, Normal rhythm, Normal heart sounds, Tachycardia - GI/Abdominal GI/Abdominal exam: Soft, Normal bowel sounds, Distended (mildly.). negative: Rebound, Rigid, Tenderness - Extremities Extremities exam: Normal capillary refill. negative: Normal inspection (There are post op changed to the R knee but no swelling, erythema, or warmth.), Calf tenderness, Tenderness - Neurological Neurological exam: Alert. negative: Motor sensory deficit Course Vital Signs 07/02/17 09:19 Temperature 97.9 F Pulse Rate 115 H Respiratory 14 Rate Blood Pressure 129/80 Pulse Ox 95 - Reevaluation(s) Reevaluation #1: The patient is doing better. His HR is now in the 80's and he denies any nausea or pain. He is resting comfortably waiting on his test results. 07/02/17 10:28 Reevaluation #2: The patient is doing better now. He denies any AP, nausea, vomiting, or back pain. He is drinking water with no issues. 07/02/17 10:48 Reevaluation #3: The patient is doing very well at this time. He is drinking water with no nausea , vomiting, AP or back pain. I did discuss the lab tests with the patient and and did explain that they mostly were normal. He does have a mildly elevated Lipase but I doubt the clinical significance of this due to the fact he has no pain, abdominal tenderness and a normal CT scan. I think the patient' s issues are related to being very sensitive to narcotic pain medicines. He is to go home on Tylenol for pain and to restart his vitamins and see his surgeon on Tuesday as planned. 07/02/17 11:47 Reevaluation #4: 2nd EKG; NSR at 85. Neg for any significant ST-T changes. 07/02/17 11:50 Medical Decision Making - Data Complexity MDM Data: Labs Ordered and/or Reviewed, X-Ray Ordered and/or Reviewed - Lab Data Result diagrams: 07/02/17 09:35 07/02/17 09:35 - Radiology Data Radiology results: Report reviewed (CT: Neg for any acute abnormalities.) Disposition Disposition: Discharge Clinical Impression: Nausea and vomiting Qualifiers: Vomiting type: unspecified Vomiting Intractability: non-intractable Qualified Code(s): R11.2 - Nausea with vomiting, unspecified Disposition: Home, Self-Care Condition: (2) Stable Instructions: Weakness (ED) Additional Instructions: Please take Tylenol for pain and slowly increase your diet and restart your vitamins supplements. Please see your PCP next week for recheck. Return to the ER for any pain, recurrent vomiting, or fever. Forms: Patient Portal Access Time of Disposition: 11:51 Quality - Quality Measures Quality Measures: N/A - Blood Pressure Screening View Details: Yes Does Patient Have Any of the Following: No Blood Pressure Classification: Pre-Hypertensive BP Reading Systolic Measurement: 151 Diastolic Measurement: 81 Screening for High Blood Pressure: < Pre-Hypertensive BP, F/U Documented > [ [id number]] Pre-Hypertensive Follow-up Interventions: Referral to alternative/primary care provider.
[2017-07-02 09:53] LABS: HEMATOCRIT 40.3 % (42.0-52.0); HEMOGLOBIN 13.8 gm/dl (14.0-18.0); MEAN CELL VOLUME 96.2 fl (81-97); MEAN CORPUSCULAR HEMOGLOBIN 32.9 pg (27-33); MEAN CORPUSCULAR HGB CONC 34.2 g/dl (32-36); MEAN PLATELET VOLUME 8.4 fl (7.4-10.4); PLATELET COUNT 523 K/uL (130-400); RED BLOOD COUNT 4.19 M/uL (4.40-5.70); RED CELL DISTRIBUTION WIDTH 12.5 % (11.5-14.5); WHITE BLOOD COUNT W/O DIFF 12.1 K/uL (4.2-12.2)
[2017-07-02 10:08] LABS: BLOOD UREA NITROGEN 18 mg/dL (8-23); EST GLOMERULAR FILTRATION RATE > 60 mL/min
[2017-07-02 10:09] LABS: TOTAL PROTEIN 6.3 g/dL (6.6-8.7)
[2017-07-02 10:10] LABS: GLUCOSE,RANDOM 123 mg/dL (74-109)
[2017-07-02 10:13] LABS: ALBUMIN 3.5 g/dL (4.0-5.0); ALKALINE PHOSPHATASE 68 U/L (40-129); ALT/SGPT 31 U/L (<41); AST/SGOT 28 U/L (10.0-50.0); CREATINE PHOSPHOKINASE 37 U/L (39-308); LIPASE 205 U/L (13-60)
[2017-07-02 10:16] LABS: CKMB 1.2 ng/mL (<6.73)
[2017-07-02 10:18] LABS: BILIRUBIN,DIRECT < 0.2 mg/dL (0-0.3)
[2017-07-02] MEDS ORDERED: 0.9 % SODIUM CHLORIDE 1000ML 1,000 ML IV ONE (10:29)
[2017-07-02] MEDS ORDERED: POTASSIUM CHLORIDE 20 MEQ TABLET PO ONE (10:48)
[2017-07-02 11:11] LABS: URINE APPEARANCE CLEAR; URINE BILIRUBIN NEGATIVE (NEGATIVE); URINE BLOOD TRACE-I (NEGATIVE); URINE COLOR YELLOW; URINE GLUCOSE (UA) NEGATIVE (NEGATIVE); URINE KETONE NEGATIVE (NEGATIVE); URINE LEUKOCYTE ESTERASE NEGATIVE (NEGATIVE); URINE NITRITE NEGATIVE (NEGATIVE); URINE PROTEIN NEGATIVE (NEGATIVE); URINE UROBILINOGEN 0.2 E.U./dL (0.20 - 1.00)
[2017-07-02 11:21] LABS: URINE WBC 0 - 2 (0-2/hpf)
[2017-07-02 11:22] LABS: URINE SQUAMOUS EPITHELIAL CELL 0 - 2 /hpf
--- NOTE | 2017-07-02 11:39 | CT SCAN REPORT ---
EXAM: CT SCAN ABDOMEN/PELVIS WO CONTRAST HISTORY: ACUTE GENERALIZED ABDOMINAL PAIN. NAUSEA AND VOMITING. HISTORY OF BOWEL RESECTION, HERNIA REPAIR, AND PROSTATECTOMY. TECHNIQUE: Contiguous axial images from the lung bases through the symphysis pubis were obtained without IV contrast. No oral contrast was utilized. COMPARISON: Abdomen and pelvis CT, 03/08/2015. FINDINGS: Juxtapleural dependent airspace disease of mild degree in the left lower lobe likely due to atelectatic change. Right base is clear. Severe coronary artery calcification. The liver and spleen are not enlarged. Unilocular cysts in the liver; largest in the caudate lobe measuring 16 mm. The spleen is normal. Hyperdense cyst, mid right kidney, posteriorly measuring 7 mm. Unilocular fluid density cyst, mid left kidney, anteriorly measures 5 cm. No calculi or hydronephrosis. Adrenals, pancreas, and gallbladder are normal. The stomach is not distended although appears grossly normal. Visualized loops of small and large bowel were of normal caliber with no wall thickening. Normal appendix. Small amount of fecal material throughout the colon. No diverticula. Prostatectomy clips are identified in the pelvis. Severe aortic calcification without aneurysm. No ascites. Two mildly prominent lymph nodes in the gastrohepatic ligament; largest measuring 16 x 13 mm, unchanged, likely benign. Penile prosthesis pump, left inguinal region. Abdominal wall reveals fat- containing right inguinal hernia. No lytic or blastic osseous lesion. IMPRESSION: 1. NO ACUTE INFLAMMATORY PROCESS OF THE ABDOMEN OR PELVIS. NO INTESTINAL OBSTRUCTION. 2. 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 3. SEVERE AORTIC CALCIFICATION WELL CORONARY ARTERY CALCIFICATION. 4. STABLE MILDLY PROMINENT LYMPH NODE IN THE GASTROHEPATIC LIGAMENT UNCHANGED FROM 2014, PRESUMABLY BENIGN. 5. PROSTATECTOMY CLIPS IN THE PELVIS. 6. FAT-CONTAINING RIGHT INGUINAL HERNIA. JOB NUMBER: [id number] [facility]
== END 2017-07-02 11:58 | disposition home or self-care (01) ==
LOC: ER 09:15
DX: R11.2 Nausea with vomiting, unspecified (principal); R10.84 Generalized abdominal pain; R53.1 Weakness; I10 Essential (primary) hypertension; Z87.891 Personal history of nicotine dependence; Z96.651 Presence of right artificial knee joint
CPT/HCPCS: 74176; 80048; 80076; 81001; 82550; 82553; 83690; 84484; 85027; 93005; 93010; 99284; J2405; J7030

== ENCOUNTER 2017-07-31 11:54 | Emergency (ER) | payer MEDICARE, OTHER ==
[2017-07-31 12:50] LABS: BASO % 0.2 % (0-6); EOS % 0.6 % (0-6); GRAN % 78.6 % (47-80); HEMATOCRIT 42.6 % (42.0-52.0); HEMOGLOBIN 14.1 gm/dl (14.0-18.0); LYMPH % 12.5 % (16-45); MEAN CELL VOLUME 95.7 fl (81-97); MEAN CORPUSCULAR HEMOGLOBIN 31.7 pg (27-33); MEAN CORPUSCULAR HGB CONC 33.1 g/dl (32-36); MEAN PLATELET VOLUME 9.9 fl (7.4-10.4); MONO % 8.1 % (0-9); PLATELET COUNT 205 K/uL (130-400); RED BLOOD COUNT 4.45 M/uL (4.40-5.70); WHITE BLOOD COUNT W/O DIFF 11.3 K/uL (4.2-12.2)
--- NOTE | 2017-07-31 12:58 | Emergency Department Record ---
History of Present Illness - General Stated Complaint: PAIN LOWER R SIDE Time Seen by Provider: 07/31/17 12:32 Source: Patient Mode of Arrival: Stretcher Limitations: No limitations - History of Present Illness Initial Comments: 72 yo male presents to ED for evaluation of abdominal pain and bloating for the past 20 hours or so. Patient reports numerous soft stools, reports vomiting x 2. Patient reports recent knee surgery and need for narcotic pain medication, resulted in constipation an weight loss symptoms. Patient denies bowel obstruction in the past, but does report previous partial bowel resection in 2001 at [facility]. Patient denies fevers, chills, or recent illness. MD Complaint: Abdominal pain Onset/Timin -: Hour(s) Location: RLQ Radiation: None Severity: Moderate Quality: Aching Consistency: Constant Improves With: Nothing Worsens With: Nothing Context: Recent surgery/procedure Associated Symptoms: Vomiting - Related Data Home Medications Medication Instructions Recorded Confirmed Last Taken Acetaminophen with Codeine 1 each PO ASDIR 07/31/17 07/31/17 Unknown [Tylenol with Codeine #3 Tablet] Previous Rx's Medication Instructions Recorded Verapamil HCl [Calan Sr] 240 mg PO DAILY #0 01/25/17 Allergies Allergy/AdvReac Type Severity Reaction Status Date / Time levofloxacin [From LEVAQUIN] Allergy Unknown HIVES Verified 07/31/17 13:24 Sulfa (Sulfonamide Allergy Unknown HIVES Verified 07/31/17 13:24 Antibiotics) [SULFA (SULFONAMIDE ANTIBIOTICS)] hydrocodone bitartrate Allergy light rash Verified 07/31/17 13:24 [From [place]] Review of Systems Constitutional: Denies: Chills, Fever, Malaise, Night sweats Eyes: Denies: Eye discharge, Eye pain ENT: Denies: Congestion, Ear pain, Epistaxis Respiratory: Denies: Cough, Dyspnea Cardiovascular: Denies: Chest pain, Dyspnea on exertion Endocrine: Denies: Fatigue Gastrointestinal: Reports: Abdominal pain, Nausea, Vomiting. Denies: Constipation Genitourinary: Denies: Incontinence, Retention Musculoskeletal: Denies: Arthralgia, Back pain, Gout, Joint swelling Skin: Denies: Bruising, Change in color Neurological: Denies: Abnormal gait, Confusion, Headache Psychiatric: Denies: Anxiety Hematological/Lymphatic: Denies: Anemia, Blood Clots Past Medical History - SOCIAL HISTORY Smoking Status: Former smoker Drug Use: None - RESPIRATORY Hx Respiratory Disorders: Yes Hx Bronchitis: Yes - CARDIOVASCULAR Hx Cardio Disorders: Yes Hx Hypertension: Yes - NEURO Hx Neuro Disorders: No - GI Hx GI Disorders: Yes Hx Abdominal Pain: Yes Hx Diverticulitis: Yes Hx Obstructive Bowel: Yes Comment:: Bowel resection - Hx Genitourinary Disorders: Yes Hx Prostate Problems: Yes (removed 2001) - ENDOCRINE Hx Endocrine Disorders: No Hx Diabetes: No Hx Thyroid Disease: No - MUSCULOSKELETAL Hx Musculoskeletal Disorders: Yes Hx Arthritis: Yes (bilateral hands) - PSYCH Hx Psych Problems: No - HEMATOLOGY/ONCOLOGY Hx Hematology/Oncology Disorders: Yes Hx Cancer: Yes (prostate 2001) Hx Chemotherapy: No Hx Radiation Therapy: No Comment:: 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 negative: Conjunctival injection, Periorbital swelling, Periorbital tenderness, Scleral icterus - ENT Ear exam: negative: Auricular hematoma, Auricular trauma Nasal Exam: negative: Active bleeding, Discharge, Dried blood, Foreign body Mouth exam: negative: Drooling, Laceration, Muffled voice, Tongue elevation - Neck Neck exam: Normal inspection. negative: Meningismus, Tenderness - Respiratory Respiratory exam: Normal lung sounds bilaterally. negative: Respiratory distress, Rhonchi, Stridor, Wheezes - Cardiovascular Cardiovascular Exam: Regular rate, Normal rhythm, Normal heart sounds - GI/Abdominal GI/Abdominal exam: Soft, Distended, Tenderness, Other (TTP over hte RLQ (mild), no rebound or guarding are present). negative: Rebound, Rigid - Rectal Rectal exam: Deferred - exam: Deferred - Extremities Extremities exam: Normal inspection. negative: Pedal edema, Tenderness - Back Back exam: Denies: CVA tenderness (R), CVA tenderness (L) - Neurological Neurological exam: Alert, Normal gait, Oriented X3 - Psychiatric Psychiatric exam: Normal affect, Normal mood - Skin Skin exam: Normal color. negative: Abrasion Type of lesion: negative: abrasion Course - Reevaluation(s) Reevaluation #1: 07/31/17 13:40 Labs reviewed, Lipase 75, WBC 11.3, labs are otherwise grossly unremarkable for an acute process. Reevaluation #2: 07/31/17 14:12 CT Abdomen and Pelvis: Findings c/w SBO RLQ Small amount ascites. Patient was updated on all results, will transfer to [facility] for surgery consultation as surgery is not available over the weekend. Reevaluation #3: 07/31/17 14:51 Case was discussed with Dr. Rueda, will accept transfer for admission and surgical consultation. Medical Decision Making - Lab Data Result diagrams: 07/31/17 12:42 07/31/17 12:42 Lab Results 07/31/17 Range/Units 12:42 WBC 11.3 (4.2-12.2) K/uL RBC 4.45 (4.40-5.70) M/uL Hgb 14.1 (14.0-18.0) gm/dl Hct 42.6 (42.0-52.0) % MCV 95.7 (81-97) fl MCH 31.7 (27-33) pg MCHC 33.1 (32-36) g/dl RDW 14.0 (11.5-14.5) % Plt Count 205 (130-400) K/uL MPV 9.9 (7.4-10.4) fl Gran % 78.6 (47-80) % Lymphocytes % 12.5 L (16-45) % Monocytes % 8.1 (0-9) % Eosinophils % 0.6 (0-6) % Basophils % 0.2 (0-6) % Disposition Disposition: Transfer Clinical Impression: SBO (small bowel obstruction) Disposition: Acute Care Hospital [facility]: SBO, sugery consultation Accepting Physician: Marybeth Time Discussed w/Accepting Physician: 14:52 Condition: (2) Stable Forms: Patient Portal Access Time of Disposition: 14:52 Quality - Quality Measures Quality Measures: N/A - Blood Pressure Screening Does Patient Have Any of the Following: Active Dx of HTN Blood Pressure Classification: Pre-Hypertensive BP Reading Systolic Measurement: 134 Diastolic Measurement: 83 Screening for High Blood Pressure: Patient Exclusion, Hx of HTN [[id number]]
[2017-07-31] MEDS ORDERED: MORPHINE SULFATE 5 MG/ML PFS IVP ONE (13:02)
[2017-07-31] MEDS ORDERED: ONDANSETRON HCL IV 4 MG/2 ML VIAL IVP ONE (13:02)
[2017-07-31 13:07] LABS: BLOOD UREA NITROGEN 19 mg/dL (8-23); CREATININE 1.1 mg/dL (0.7-1.2); EST GLOMERULAR FILTRATION RATE > 60 mL/min
[2017-07-31 13:08] LABS: TOTAL PROTEIN 7.1 g/dL (6.6-8.7)
[2017-07-31 13:10] LABS: GLUCOSE,RANDOM 138 mg/dL (74-109)
[2017-07-31 13:12] LABS: ALB/GLOB RATIO 1.7 (1.1-1.8); ALBUMIN 4.5 g/dL (4.0-5.0); ALKALINE PHOSPHATASE 96 U/L (40-129); ALT/SGPT 21 U/L (<41); AST/SGOT 21 U/L (10.0-50.0)
[2017-07-31 13:13] LABS: LIPASE 75 U/L (13-60)
[2017-07-31] MEDS ORDERED: 0.9 % SODIUM CHLORIDE 1000ML 1,000 ML IV SCH (13:15)
--- NOTE | 2017-08-02 00:50 | CT SCAN REPORT ---
EXAM: CT SCAN ABDOMEN/PELVIS W CONTRAST HISTORY: ABDOMINAL PAIN WITH BLOATING, NAUSEA, AND VOMITING. RIGHT LOWER QUADRANT PAIN. TECHNIQUE: Standard CT imaging of the abdomen and pelvis was performed with contrast. 100 mL of Omnipaque-300 were administered. COMPARISON: 07/02/2017. FINDINGS: There is mild atelectasis or scarring at the lung bases. There are stable hepatic cysts. The gallbladder is contracted. There is no biliary ductal dilatation. The pancreas, spleen, and adrenal glands are normal. There are stable bilateral renal cysts, left greater than right. There is no acute renal pathology. There is extensive atherosclerotic calcification within the aorta with no aneurysm or dissection. There is no retroperitoneal lymphadenopathy. There are multiple dilated air and fluid-filled small bowel loops within the abdomen and pelvis extending into the right lower quadrant. A zone of transition is present within the right lower quadrant, best seen on images #84 through #88. A few fluid-filled small bowel loops are present distal to this level suggesting a high-grade partial obstruction. The proximal small bowel loops measure up to 5 cm in diameter. There is no perforation. There is trace fluid within the mesentery and pelvis. There is no pneumoperitoneum. There is mild stool within the colon. The prostate gland is surgically absent. The urinary bladder appears normal. A penile prosthesis is present. Degenerative changes are present within the lumbar spine. No osteoblastic or osteolytic process is identified. IMPRESSION: 1. FINDINGS CONSISTENT WITH SMALL BOWEL OBSTRUCTION WITH A ZONE OF TRANSITION NOTED WITHIN THE RIGHT LOWER QUADRANT. THE PROXIMAL SMALL BOWEL LOOPS MEASURE UP TO 5 CM. 2. TRACE ASCITES. 3. ADDITIONAL STABLE CHRONIC FINDINGS ABOVE. JOB NUMBER: [id number] [facility]
== END 2017-07-31 16:00 | disposition short-term general hospital (02) ==
LOC: ER 11:54
DX: K56.600 Partial intestinal obstruction, unspecified as to cause (principal); R10.31 Right lower quadrant pain; I10 Essential (primary) hypertension; Z87.891 Personal history of nicotine dependence
CPT/HCPCS: 99285 ×2; 96374; 96375; 96361; 83690; 85025; 80053; 74177; Q9967; J2405; J2270; J7030